=== PATIENT | female | born 1965 | race Asian ===

== ENCOUNTER 2017-06-06 04:18 | Inpatient (IN) | payer MEDICAID ==
[~2017-06-06] VITALS: Ht 147.3 cm; Wt 40.8 kg
--- NOTE | 2017-06-06 04:25 | NUR ---
PT BIB FAMILY FROM HOME W/C TO ER BED 7, PT PER FAMILY HAS BEEN HAVING FEVER AND WEAKNESS X 3 DAYS. PT AOX3 RR EVEN AND UNLABORED. NO SOB NOTED. EPIDSODE OF VOMITTING X1 NOTED. PT WARM TO TOUCH. RECTAL TEMP 104.3 COOLING MEASURES RENDERED. PT NOT DIAPHORETIC. PT GOWNED AND PLACED ON MONITOR. DR. JAMA AT BEDSIDE FOR EVAL.
[2017-06-06] MEDS ORDERED: ONDANSETRON HCL/PF 4 MG/2 ML VIAL ONE (04:27)
[2017-06-06] MEDS ORDERED: ACETAMINOPHEN 650 MG/SUPP.RECT RC ONE ×2 (04:27→04:30)
[2017-06-06] MEDS ORDERED: ONDANSETRON HCL/PF 4 MG/2 ML VIAL IVP ONE (04:30)
[2017-06-06] MEDS ORDERED: LEVOFLOXACIN 750 MG /D5W 150ML 150 ML IV ONE ×2 (04:30→05:00)
[2017-06-06] MEDS ORDERED: IV NS 0.9% 1,000 ML BAG IV ONE ×2 (04:30→06:00)
--- NOTE | 2017-06-06 04:40 | NUR ---
URINE COLLECTED. KAMRON (FEMALE WITNESS) AT BEDSIDE. VERBAL CONSENT BY PT.
[2017-06-06 05:01] LABS: APPEARANCE,URINE CLOUDY (CLEAR); BILIRUBIN,URINE NEGATIVE (NEGATIVE); BLOOD, URINE 2+ Ery/uL (NEGATIVE); COLOR,URINE YELLOW (YELLOW); KETONES,URINE 2+ (NEGATIVE); LEUKOCYTE ESTERASE ,URINE 1+ (NEGATIVE); NITRITE, URINE NEGATIVE (NEGATIVE); PROTEIN,URINE 2+ mg/dl (NEGATIVE); UGLUCOSE NEGATIVE (NEGATIVE); UROBILINOGEN,URINE 0.2 EU/dL (0.2)
--- NOTE | 2017-06-06 05:01 | NUR ---
RADIOLOGY AT BEDSIDE FO CXR
[2017-06-06 05:03] LABS: CALCIUM, SERUM 9.2 mg/dL (8.5-10.1); CARBON DIOXIDE 15 mmol/L (21-32); CHLORIDE 103 mmol/L (98-107); CREATININE 0.9 mg/dL (0.6-1.3); GLUCOSE 138 mg/dL (74-106); POTASSIUM 3.5 mmol/L (3.5-5.1); SODIUM SERUM 139 mmol/L (136-145); UREA NITROGEN, BLOOD 7 mg/dL (7-18)
[2017-06-06 05:10] LABS: ALANINE AMINOTRANSFERASE 37 U/L (12-78); ALBUMIN 3.4 g/dL (3.4-5.0); ALKALINE PHOSPHATASE 145 U/L (46-116); ASPARTATE AMINOTRANSFERASE 16 U/L (15-37); BILIRUBIN,DIRECT 0.3 mg/dL (0.0-0.2); BILIRUBIN,TOTAL 0.9 mg/dL (0.2-1.0); TOTAL PROTEIN, SERUM 8.2 g/dL (6.4-8.2)
[2017-06-06 05:11] LABS: TROPONIN I 0.019 ng/mL (0.00-0.056)
--- NOTE | 2017-06-06 05:12 | NUR ---
ORAL TEMP 102.7. DR. JAMA MADE AWARE.
[2017-06-06 05:24] LABS: HEMATOCRIT 37 % (33-45); HEMOGLOBIN 11.6 g/dL (11.5-14.8); LYMPHOCYTES # (AUTO) 2.1 /CMM (0.8-4.8); LYMPHOCYTES % (AUTO) 10.5 % (20.0-44.0); MEAN CORPUSCULAR HEMOGLOBIN 19 PG (26.0-33.0); MEAN CORPUSCULAR HGB CONC 32 g/dl (31.0-36.0); MEAN CORPUSCULAR VOLUME 60 fL (82-100); MONOCYTES # (AUTO) 0.2 /CMM (0.1-1.30); NEUTROPHILS # (AUTO) 17.9 /CMM (1.8-8.9); NEUTROPHILS % (AUTO) 88.5 % (43.0-81.0); PLATELET COUNT (AUTO) 285 /CMM (150-450); RDW COEFFICIENT OF VARIATION 15.8 (11.5-15.0); RED BLOOD CELL COUNT(AUTO) 6.13 MIL/uL (4.0-5.2); WHITE BLOOD COUNT (AUTO) 20.2 K/uL (4.3-11.0)
[2017-06-06 05:34] LABS: INR 1.1 (0.87-1.13); PROTHROMBIN TIME 11.8 SECS (9.5-12.7)
[2017-06-06 05:48] LABS: BACTERIA,URINE 3+ /HPF (None Seen); WBC,URINE 51-80 /HPF (0-3)
[2017-06-06 05:49] LABS: SQUAMOUS EPITHELIAL CELL,UR Few /HPF (None Seen); URINE AMORPHOUS URATE Few /HPF (None Seen)
--- NOTE | 2017-06-06 05:54 | NUR ---
PT TO RADIOLOGY FOR CT ABD
--- NOTE | 2017-06-06 06:06 | NUR ---
PT RETURNED FROM CT
[2017-06-06 06:10] LABS: BAND % (MANUAL) 6 % (0.0-5.0); LYMPHOCYTES % (MANUAL) 12 % (16-48); MONOCYTES % (MANUAL) 1 % (0-11.0); NEUTROPHILS % (MANUAL) 81 (42-76)
--- NOTE | 2017-06-06 06:10 | NUR ---
ORAL TEMP 100.2. DR. JAMA MADE AWARE
--- NOTE | 2017-06-06 06:29 | NUR ---
CALLED SENIOR HARDWARE ENGINEER AGAIN FOR BED; SHE STATED SHE WOULD CALL BACK WHEN SHE OBTAINS A BED.
[2017-06-06] MEDS ORDERED: PIPERACILLIN /TAZOBACTAM 3.375 G in IV D5W 50 ML IV ONE (06:30)
[2017-06-06] MEDS ORDERED: VANCOMYCIN 1 GM in IV D5W 250 ML IV ONE (06:30)
[2017-06-06] MEDS ORDERED: PIPERACILLIN /TAZOBACTAM 3.375 G VIAL IV ONE (06:49)
--- NOTE | 2017-06-06 06:51 | NUR ---
LAB AT BEDSIDE FOR LACTIC REDRAW
--- NOTE | 2017-06-06 07:01 | NUR ---
ASSIGNED M/S [facility] 114-2
[2017-06-06] MEDS ORDERED: VANCOMYCIN 500 MG VIAL ONE (07:12)
--- NOTE | 2017-06-06 07:12 | NUR ---
REPORT GIVEN TO KAYKAY LANG FOR WALLY.
[2017-06-06] MEDS ORDERED: VANCOMYCIN 1 GM VIAL ONE (07:16)
--- NOTE | 2017-06-06 07:34 | NUR ---
REPORT GIVEN TO [facility] KAYKAY ISLAS FOR CONTINUE OF CARE. / BED 114
--- NOTE | 2017-06-06 07:40 | NUR ---
PT TRANSFERED TO [facility]/ MED BED 114 VIA [facility].
[2017-06-06 08:00] VITALS: BP 105/70
--- NOTE | 2017-06-06 08:00 | NUR ---
RN NOTES RECEIVED PT IN [place] [id number], ABLE TO MAKE NEEDS KNOWN, V/S TAKEN AND RECORDED, AFEBRILE, NO COMPLAINTS OF PAIN, ON ROOM AIR SATURATING WELL, NO RESPIRATORY DISTRESS NOTED. BODY ASSESSMENT DONE, SKIN INTACT. PT ABLE TO MOVE ALL 4 EXTREMITIES, WILL CONTINUE TO MONITOR, FAMILY AT BEDSIDE BED LOCKED AND IN LOWEST POSITION, CALL LIGHT WITHIN REACH.
[2017-06-06] MEDS ORDERED: HYDROCODONE/APAP 5/325MG 1 EACH TABLET PO PRN (11:00)
[2017-06-06] MEDS ORDERED: HYDROMORPHONE INJ 2 MG/ML DISP.SYRIN IV PRN (11:00)
[2017-06-06] MEDS ORDERED: MAGNESIUM HYDROXIDE 30 ML UDC PO PRN (11:00)
[2017-06-06] MEDS ORDERED: MAG HYDROX/AL HYDROX/SIMETH 30 ML UDC PO PRN (11:00)
[2017-06-06] MEDS ORDERED: Z GUARD REMEDY 2 OZ OINT TP PRN (11:00)
[2017-06-06] MEDS ORDERED: ONDANSETRON HCL/PF 4 MG/2 ML VIAL IVP PRN (11:00)
[2017-06-06] MEDS ORDERED: CT SWABBABLE VALVE TRANS SET 1 EA INFUS.SET MC ONE (13:12)
[2017-06-06] MEDS ORDERED: IOHEXOL-300 100 ML VIAL IV ONE (13:12)
[2017-06-06] MEDS: CEFTRIAXONE 1 G in IV D5W 50 ML IV SCH (14:00)
[2017-06-06] MEDS: ACETAMINOPHEN 325 MG TABLET PO PRN (14:19)
[2017-06-06 16:00] VITALS: BP 113/62
[2017-06-06] MEDS: LACTOBACILLUS RHAMNOSUS GG 1 EACH CAP.SPRINK PO SCH (17:27)
--- NOTE | 2017-06-06 18:34 | NUR ---
RN CLOSING NOTES PT IS AFEBRILE, NO S/SX OF DISTRESS NOTED. SATURATING WELL ON ROOM AIR, ADLIB WITH BRP. R WRIST IV SITE IS PATENT, NO S/SX OF INFECTION AND INFILTRATION NOTED. WILL CONTINUE TO WITH ATB TX. MOTIVATED PT OF SELF CARE, ALL SAFETY MEASUREMENTS, BED LOCKED, SIDE RAILS UP, CALL LIGHT WITHIN REACH. WILL ENDORSE TO PM NURSE FOR CONTINUATION OF CARE.
--- NOTE | 2017-06-06 19:20 | NUR ---
MS/RN NOTES RECEIVED PT. SITTING UP IN BED. AWAKE, ALERT AND ORIENTED X4. BREATHING EVEN AND UNLABORED ON ROOM AIR. NO SOB, RESPIRATORY DISTRESS OR COMPLAINTS OF PAIN NOTED AT THIS TIME. PT. WITH RIGHT WRIST 18 GAUGE PERIPHERAL IV PRESENT, PATENT AND INTACT ADMINISTERING TO PT. NS @ 75 ML/HR. PER. DAYSHIFT NURSE PT. HAD MILD FEVER 100.2 DURING THE DAY, TYLENOL ADMINISTERED, COOLING MEASURES IMPLEMENTED, PT. TEMP DECREASED TO WNL. PT. WITH FAMILY PRESENT AT BEDSIDE. BED IN LOWEST POSITION, CALL LIGHT WITHIN REACH, SIDE RAILS UP X2, WILL CONTINUE TO MONITOR.
[2017-06-06 20:00] VITALS: BP 121/69
[2017-06-06] MEDS: TAMSULOSIN 0.4 MG CAP.SR.24H PO SCH (22:00)
[2017-06-06] MEDS: ZOLPIDEM TARTRATE 5 MG TABLET PO PRN (22:17)
[2017-06-07] MEDS: IV NS 0.9% 1,000 ML IV PRN ×2 (03:40→18:01)
--- NOTE | 2017-06-07 06:45 | NUR ---
MS/RN NOTES PT. IS LYING IN BED RESTING. BREATHING EVEN AND UNLABORED ON ROOM AIR. NO SOB, RESPIRATORY DISTRESS OR COMPLAINTS OF PAIN NOTED AT THIS TIME. PT. WITH RIGHT WRIST 18 GAUGE PERIPHERAL IV PRESENT, PATENT AND INTACT ADMINISTERING TO PT. NS @ 75 ML/HR. PT. WITH FAMILY PRESENT AT BEDSIDE. ALL PT. NEEDS MET. BED IN LOWEST POSITION, CALL LIGHT WITHIN REACH, SIDE RAILS UP X2, WILL ENDORSE TO DAYSHIFT NURSE FOR CONTINUITY OF CARE.
[2017-06-07 07:16] LABS: BASOPHILS % (AUTO) 0.1 % (0.0-2.0); HEMATOCRIT 31 % (33-45); HEMOGLOBIN 9.9 g/dL (11.5-14.8); LYMPHOCYTES # (AUTO) 3.3 /CMM (0.8-4.8); LYMPHOCYTES % (AUTO) 15.6 % (20.0-44.0); MEAN CORPUSCULAR HEMOGLOBIN 19 PG (26.0-33.0); MEAN CORPUSCULAR HGB CONC 32 g/dl (31.0-36.0); MEAN CORPUSCULAR VOLUME 60 fL (82-100); MONOCYTES % (AUTO) 9.5 % (2.0-12.0); NEUTROPHILS # (AUTO) 15.7 /CMM (1.8-8.9); NEUTROPHILS % (AUTO) 74.8 % (43.0-81.0); PLATELET COUNT (AUTO) 282 /CMM (150-450); RDW COEFFICIENT OF VARIATION 16.1 (11.5-15.0); RED BLOOD CELL COUNT(AUTO) 5.13 MIL/uL (4.0-5.2)
[2017-06-07 08:00] VITALS: BP 111/62
[2017-06-07 08:10] LABS: CALCIUM, SERUM 8.8 mg/dL (8.5-10.1); CREATININE 0.4 mg/dL (0.6-1.3); MAGNESIUM 1.8 mg/dL (1.8-2.4)
[2017-06-07 08:11] LABS: POTASSIUM 2.5 mmol/L (3.5-5.1)
[2017-06-07] MEDS: LACTOBACILLUS RHAMNOSUS GG 1 EACH CAP.SPRINK PO SCH ×2 (09:34→18:10)
[2017-06-07] MEDS: AMLODIPINE BESYLATE 10 MG TABLET PO SCH (09:34)
[2017-06-07] MEDS: POTASSIUM CL. PREMIX PERIPHER. 50 ML IV SCH ×4 (09:34→18:08)
[2017-06-07] MEDS: PANTOPRAZOLE 40 MG TABLET.DR PO SCH (09:37)
[2017-06-07 09:52] LABS: BAND % (MANUAL) 2 % (0.0-5.0); LYMPHOCYTES % (MANUAL) 20 % (16-48); MONOCYTES % (MANUAL) 6 % (0-11.0); NEUTROPHILS % (MANUAL) 72 (42-76)
[2017-06-07] MEDS: CEFTRIAXONE 1 G in IV D5W 50 ML IV SCH (11:12)
--- NOTE | 2017-06-07 18:39 | NUR ---
Endorse to night nurse at this time.
--- NOTE | 2017-06-07 19:30 | NUR ---
MS RN INITIAL NOTE RECEIVED PT IN BED WITH AT BEDSIDE. A/O X4 AND ABLE TO MAKE NEEDS KNOWN. BREATHING EVEN, UNLABORED AND ON ROOM AIR SATURATING WELL. IV RAC CLEAN, INTACT AND WITH FLUIDS RUNNING. CALL LIGHT WITHIN REACH AT ALL TIMES. WILL CONTINUE TO MONITOR.
[2017-06-07 20:00] VITALS: BP 107/63
[2017-06-07] MEDS: TAMSULOSIN 0.4 MG CAP.SR.24H PO SCH (21:51)
--- NOTE | 2017-06-08 07:00 | NUR ---
RN NOTES RECEIVED PT ON BED, A/Ox4, RESPIRATION EVEN AND UNLABORED, NO SOB NOTED ON RA , BREATHING EVEN AND UNLABORED ON ROOM AIR. NO SOB, RIGHT WRIST IV G 18 GAUGE CDI, WITH IV F NS AT 75CC/HR, PATENT AND INTACT ADMINISTERING TO PT. NS @ 75 ML/HR. PER. CALL LIGHT WITHIN EASY REACH, BED IN LOWEST POSITION AND LOCKED, SIDE RAILS UP X3 , WILL CONTINUE TO MONITOR PT CLOSELY AND NOTIFY MD FOR ANY SIGNIFICANT CHANGES
--- NOTE | 2017-06-08 07:33 | NUR ---
MS RN CLOSING NOTE PT REMAINED STABLE DURING SHIFT. NO ACUTE DISTRESS NOTED. AT BEDSIDE. NO C/O PAIN NOTED. ON ROOM AIR. CALL LIGHT WITHIN REACH. ALL NEEDS ATTENDED TO PROMPTLY. WILL ENDORSE TO NEXT SHIFT FOR CONTINUITY OF CARE.
[2017-06-08 07:40] LABS: BASOPHILS % (AUTO) 0.3 % (0.0-2.0); EOSINOPHILS # (AUTO) 0.1 /CMM (0.0-0.7); EOSINOPHILS % (AUTO) 0.6 % (0.0-6.0); HEMATOCRIT 30 % (33-45); HEMOGLOBIN 9.8 g/dL (11.5-14.8); LYMPHOCYTES # (AUTO) 3.1 /CMM (0.8-4.8); LYMPHOCYTES % (AUTO) 26.6 % (20.0-44.0); MEAN CORPUSCULAR HEMOGLOBIN 19 PG (26.0-33.0); MEAN CORPUSCULAR HGB CONC 33 g/dl (31.0-36.0); MEAN CORPUSCULAR VOLUME 59 fL (82-100); MONOCYTES # (AUTO) 0.9 /CMM (0.1-1.30); MONOCYTES % (AUTO) 7.8 % (2.0-12.0); NEUTROPHILS # (AUTO) 7.5 /CMM (1.8-8.9); NEUTROPHILS % (AUTO) 64.7 % (43.0-81.0); PLATELET COUNT (AUTO) 305 /CMM (150-450); RDW COEFFICIENT OF VARIATION 14.9 (11.5-15.0); RED BLOOD CELL COUNT(AUTO) 5.08 MIL/uL (4.0-5.2); WHITE BLOOD COUNT (AUTO) 11.6 K/uL (4.3-11.0)
[2017-06-08 08:00] VITALS: BP 127/71
[2017-06-08 08:09] LABS: CALCIUM, SERUM 8.5 mg/dL (8.5-10.1); CREATININE 0.4 mg/dL (0.6-1.3); POTASSIUM 3.1 mmol/L (3.5-5.1)
[2017-06-08 08:12] LABS: BAND % (MANUAL) 3 % (0.0-5.0); EOSINOPHILS % (MANUAL) 2 % (0-4); LYMPHOCYTES % (MANUAL) 32 % (16-48); MONOCYTES % (MANUAL) 6 % (0-11.0); NEUTROPHILS % (MANUAL) 57 (42-76)
[2017-06-08] MEDS: IV NS 0.9% 1,000 ML IV PRN ×2 (08:12→23:18)
[2017-06-08] MEDS: AMLODIPINE BESYLATE 10 MG TABLET PO SCH (08:14)
[2017-06-08] MEDS: PANTOPRAZOLE 40 MG TABLET.DR PO SCH (08:14)
[2017-06-08] MEDS: LACTOBACILLUS RHAMNOSUS GG 1 EACH CAP.SPRINK PO SCH ×2 (08:14→16:03)
[2017-06-08] MEDS: POTASSIUM CL. PREMIX PERIPHER. 50 ML IV SCH ×4 (09:30→12:34)
[2017-06-08] MEDS: CEFTRIAXONE 1 G in IV D5W 50 ML IV SCH (10:45)
[2017-06-08] MEDS ORDERED: AMLO10TA4 PO (11:46)
[2017-06-08] MEDS ORDERED: CALC-108 PO (11:46)
--- NOTE | 2017-06-08 12:00 | NUR ---
RN NOTES PT OOB TO BR ,STEADY GAIT, STABLE , KARSTEN ANY DISTRESS, CONTINUE TO MONITOR.
[2017-06-08 16:00] VITALS: BP 114/68
[2017-06-08] MEDS: ACETAMINOPHEN 325 MG TABLET PO PRN ×2 (16:03→21:23)
--- NOTE | 2017-06-08 18:18 | NUR ---
RN NOTES VSS STABLE , PT AT REST , SUPPORTIVE FAMILY AT THE BEDSIDE, NS AT 75CC/HR RUNNING VIA R WRIST IV SITE , NO DISTESS NOTED ON THIS SHIFT, WILL ENDORSE TO SENIOR BUSINESS MANAGER NURSE FOR WALLY .
--- NOTE | 2017-06-08 19:15 | NUR ---
RN INITIAL NOTES RECEIVED PATIENT IN BED, AWAKE AND ALERT AND ORIENTED. PATIENT ABLE TO MAKE NEEDS KNOWN AND DENIES ANY PAIN AND DISCOMFORT. PATIENT STILL NOTED WITH HEMATURIA, NO C/O DYSURIA. PATIENT IS ON ROOM AIR, NO RESPIRATORY DISTRESS NOTED. ABLE TO AMBULATE ADLID, AT BEDSIDE FOR ASSISTANCE, ENCOURAGED TO CALL NURSES FOR FURTHER ASSISTANCE NEEDED. ENCOURAGED PO INTAKE/ SNACK TOLERATED FOR MALNUTRITION ALERT. R WRIST G24, INTACT AND PATENT, NO SIGNS OF INFILTRATION, IVF ORDERED. PATIENT'S NEEDS ANTICIPATED AND MET. SAFETY AND COMFORT ENSURED. BED IN LOW AND LOCKED POSITION. CALL LIGHT IN REACH. WILL ENDORSE ACCORDINGLY FOR CONTINUITY OF CARE.
[2017-06-08 20:00] VITALS: BP 113/68
[2017-06-08] MEDS: TAMSULOSIN 0.4 MG CAP.SR.24H PO SCH (21:23)
[2017-06-08] MEDS: ZOLPIDEM TARTRATE 5 MG TABLET PO PRN (23:18)
--- NOTE | 2017-06-09 00:45 | NUR ---
RN NOTES PATIENT IN BED, SLEEPING COMFORTABLY, NO ACUTE DISTRESS. MEDICATED WITH AMBIEN, PER PATIENT'S REQUESTS, MEDICATION EFFECTIVE.
[2017-06-09 04:00] VITALS: BP 120/69
--- NOTE | 2017-06-09 06:52 | NUR ---
RN CLOSING NOTES PATIENT WITH NO ACUTE CHANGE IN CONDITION/DISTRESS OBSERVED OVERNIGHT. PATIENT REMAINS STABLE, NO DISTRESS. DENIES ANY PAIN AND DISCOMFORT. NEEDS ANTICIPATED AND MET. SAFETY AND COMFORT ENSURED. BED IN LOW AND LOCKED POSITION. CALL LIGHT IN REACH. WILL ENDORSE ACCORDINGLY FOR CONTINUITY OF CARE.
--- NOTE | 2017-06-09 07:25 | NUR ---
RN NOTES RECV'D FROM NOC RN. ASSESSED PT. A&OX4. SITTING UP IN BED. C/O 5/10 CUMMINS BUT WANTS TO WAIT AND SEE HOW SHE FEELS AFTER EATING BREAKFAST. C/O RUQ TENDERNESS UPON PALPATION. CONT IVF NS @75CC/HR RW 24G. SPOUSE AT BEDSIDE. BED LOCKED IN LOW POSITION. CALL LIGHT W/IN REACH. WILL CONT TO MONITOR CLOSELY.
[2017-06-09 08:00] VITALS: BP 132/78
[2017-06-09] MEDS: PANTOPRAZOLE 40 MG TABLET.DR PO SCH (08:50)
[2017-06-09] MEDS: LACTOBACILLUS RHAMNOSUS GG 1 EACH CAP.SPRINK PO SCH (08:50)
[2017-06-09 08:51] VITALS: BP 132/78
[2017-06-09] MEDS: AMLODIPINE BESYLATE 10 MG TABLET PO SCH (08:51)
[2017-06-09 10:12] LABS: BASOPHILS % (AUTO) 0.3 % (0.0-2.0); EOSINOPHILS % (AUTO) 0.6 % (0.0-6.0); HEMATOCRIT 33 % (33-45); HEMOGLOBIN 10.4 g/dL (11.5-14.8); LYMPHOCYTES # (AUTO) 2.4 /CMM (0.8-4.8); MEAN CORPUSCULAR HEMOGLOBIN 19 PG (26.0-33.0); MEAN CORPUSCULAR HGB CONC 32 g/dl (31.0-36.0); MEAN CORPUSCULAR VOLUME 59 fL (82-100); MONOCYTES # (AUTO) 0.6 /CMM (0.1-1.30); MONOCYTES % (AUTO) 8.3 % (2.0-12.0); NEUTROPHILS # (AUTO) 3.9 /CMM (1.8-8.9); NEUTROPHILS % (AUTO) 56.8 % (43.0-81.0); PLATELET COUNT (AUTO) 328 /CMM (150-450); RDW COEFFICIENT OF VARIATION 15.6 (11.5-15.0); RED BLOOD CELL COUNT(AUTO) 5.56 MIL/uL (4.0-5.2); WHITE BLOOD COUNT (AUTO) 6.9 K/uL (4.3-11.0)
[2017-06-09 10:24] LABS: CALCIUM, SERUM 9.3 mg/dL (8.5-10.1); CREATININE 0.5 mg/dL (0.6-1.3); POTASSIUM 3.2 mmol/L (3.5-5.1)
[2017-06-09] MEDS: CEFTRIAXONE 1 G in IV D5W 50 ML IV SCH (10:42)
[2017-06-09] MEDS ORDERED: LEVO500T15 PO (11:22)
[2017-06-09] MEDS ORDERED: POTASSIUM CHLORIDE 20 MEQ TAB.PRT.SR PO ONE (13:00)
--- NOTE | 2017-06-09 13:15 | NUR ---
RN NOTES DISCHARGE INSTRUCTION GIVEN , PT VERBALIZES UNDERSTANDING , ABX PRESCRIPTION FAXED TO PT'S PHARMACY , IV SITE DISCONTINUED , NO SKIN ISSUE NOTED, PT LEFT THE FLOOR AMBULATORY ACCOMPANIED BY FAMILY IN STABLE CONDITION .
== END 2017-06-09 13:15 | disposition home or self-care (01) | DRG 720 ==
LOC: ER 04:20 → MEDSG1 07:15
PROVIDERS: ADMIT Nurse Practitioner Acute Care; ATTEND Nurse Practitioner Acute Care
DX: A41.9 Sepsis, unspecified organism (principal); E87.2 Acidosis; N20.1 Calculus of ureter; R65.20 Severe sepsis without septic shock; E87.6 Hypokalemia; I10 Essential (primary) hypertension; N20.0 Calculus of kidney; D72.829 Elevated white blood cell count, unspecified; D25.9 Leiomyoma of uterus, unspecified; N13.6 Pyonephrosis; B96.20 Unspecified Escherichia coli [E. coli] as the cause of diseases classified elsewhere
CPT/HCPCS: 36415; 71010-TC; 71250-TC; 74178; 76856-TC; 80048-TC; 80076-TC; 81000-TC; 83605-TC; 83735-TC; 84100-TC; 84484-TC; 85025-TC; 85730-TC; 87040-TC; 87081-TC; 87086-TC; 87186-TC; 87400; A4606; J0696; J1956; J2405; J2543; J3370; J3480; J7030; J7060; Q9967; Z7610